=== PATIENT | female | born 1975 | race Caucasian/White ===

== ENCOUNTER 2018-07-09 03:43 | Emergency (ER) | payer MEDICAID ==
[~2018-07-09] VITALS: Ht 165.1 cm; Wt 90.8 kg
[2018-07-09 03:51] VITALS: BP 131/61
--- NOTE | 2018-07-09 03:55 | NUR ---
PATIENT AMBULATED TO ER BED 12.
--- NOTE | 2018-07-09 04:00 | NUR ---
PT IS A 43 Y/O FEMALE WHO PRESENTS TO THE ED C/O GENERALIZED WEAKNESS. PT STATES THAT SHE HAS A HISTORY OF ANEMIA AND THINKS SHE IS LOW AGAIN. PT REPORTS 8/10 BILATERAL LEG PAIN, CRAMPING. PT ADMITS TO METH USE. PT DENIES CP, SOB, N/V/D. PT AWAKE AND ALERT, RR EVEN/UNLABORED. PT REPOSITIONED FOR COMFORT, BED IN LOWEST POSITION. ER MD DR. PENG NOTIFIED. WILL CONTINUE TO MONITOR. MED HX: ANXIETY/ANEMIA/FIBROIDS
--- NOTE | 2018-07-09 04:41 | NUR ---
URINE COLLECTED. SENT TO LAB.
[2018-07-09 05:27] LABS: HEMATOCRIT 23.9 % (36-48); MEAN CORPUSCULAR HEMOGLOBIN 16 pg (27-31); MEAN CORPUSCULAR HGB CONC 28 g/dL (33-37); MEAN CORPUSCULAR VOLUME 57.3 fL (80-94); PLATELET COUNT (AUTO) 340 K/uL (140-450); RED BLOOD CELL COUNT(AUTO) 4.17 MIL/uL (4.20-5.40); RED CELL DISTRIBUTION WIDTH 29.4 % (11.6-13.7); WHITE BLOOD COUNT (AUTO) 8.3 K/uL (4.8-10.8)
--- NOTE | 2018-07-09 05:30 | NUR ---
PATIENT RESTING AT THIS TIME. NO SIGNS OF DISTRESS.
[2018-07-09 05:34] LABS: HEMOGLOBIN 6.7 g/dL (12.0-16.0)
[2018-07-09 06:22] LABS: BASOPHILS % (MANUAL) 0 % (0-2); EOSINOPHILS % (MANUAL) 5 % (0-4); LYMPHOCYTES % (MANUAL) 28 % (20-46); MONOCYTES % (MANUAL) 5 % (5-12)
[2018-07-09 06:30] VITALS: BP 128/75
--- NOTE | 2018-07-09 06:30 | NUR ---
Patient discharged with v/s stable. Written and verbal after care instructions given and explained. Patient alert, oriented and verbalized understanding of instructions. Ambulatory with steady gait. All questions addressed prior to discharge. ID band removed. Patient advised to follow up with PMD. Rx of FEOSOL ORIGINAL 65MG given. Patient educated on indication of medication including possible reaction and side effects. Opportunity to ask questions provided and answered.
== END 2018-07-09 06:30 | disposition home or self-care (01) ==
LOC: MED 03:43
DX: D50.9 Iron deficiency anemia, unspecified (principal); Z88.8 Allergy status to other drugs, medicaments and biological substances
CPT/HCPCS: 36415; 81002; 81025; 85025; 86886; 86900; 86901; 99284

== ENCOUNTER 2018-11-06 19:53 | Emergency (ER) | payer SELFPAY ==
--- NOTE | 2018-11-06 20:05 | NUR ---
PT REFUSED TRIAGE AT THIS TIME. PATIENT LEFT WITHOUT BEING SEEN BY DR. JACOBSON. NO FURTHER CARE PROVIDED FOR PATIENT.
== END 2018-11-06 20:05 | disposition left against medical advice (07) ==
LOC: MED 19:53
DX: Z53.21 Procedure and treatment not carried out due to patient leaving prior to being seen by health care provider (principal)